=== PATIENT | female | born 1950 | race African-American/Black ===

== ENCOUNTER → 2017-06-02 | Day surgery (SDC) | payer MEDICARE, MEDICAID ==
[~2017-06-02] MED LIST: ATOR10TA60 PO; BUPR150T8 PO; CHOL10003 PO; ESCITALOPRAM OX10 MG PO; FURO20TA3 PO; IV RINGERS,LACTATED 1000ML 1,000 ML IV SCH; MULT1TAB52 PO; PROP40TA PO; PROPOFOL 20 ML IV ONE; THYROID MED
--- NOTE | 2017-06-02 09:13 | PDOC1 ---
HISTORY & PHYSICAL H&P Jocelyn Everett [id number] 1950 05/20/2017 03:30 PM 09/14 [facility], [facility] OUR PATIENTS COM[facility] FIRST [address] [place] [address] Ph. [phone] Patient: Jocelyn Everett Date of : 1950 Date: 05/20/2017 3:30 PM Visit Type: Consult This 66 year old female presents for Dysphagia. History of Present Illness: 1. Dysphagia The symptoms occur with solids and liquids which cause choking and gagging with food sticking in the lower chest. The symptoms are felt to be related to meals. The symptoms are not related to history of stroke. The patient has a history of neck irradiation. There is no history of Johnson's esophagus, reflux or stroke. The patient denies aggravating factors. The patient denies relieving factors. The patient is also experiencing choking and food sticking. The patient denies anorexia, bloating, chest pain, hoarseness or nausea. Additional information: Had breast ca 12 yrs ago and had chemo and radiation treatment . Has issue with swallowing ever since. Never has any evaluation. Had asymptomatic gallstone. INTAKE COMMENTS: Intake Comments: Nurse Note: the pt is here today with complaints of dysphagia, gallstones and vomiting after eating certain fruits. PROBLEM LIST: Problem Description Onset Date Chronic Notes Hypertension 05/21/2017 Y PAST MEDICAL/SURGICAL HISTORY (Detailed) Disease/disorder Onset Date Management Date Comments Lumpectomy 1998 Hysterectomy, total Cancer, breast Radiation therapy Cardiomyopathy Colonoscopy normal 2008 Common carotid aneurysm Diabetes type 2 Glaucoma Hyperlipidemia Lymphedema Osteomyelitis of mandible Osteoporosis Pseudophakia Thyroid disease Medications (Active): Started Medication Directions Instruction Stopped atorvastatin 10 mg tablet take 1 tablet by oral route every day bupropion HCl SR 150 mg tablet,12 hr sustained-release take 1 tablet by oral route every day furosemide 20 mg tablet take 1 tablet by oral route every day Lexapro 10 mg tablet take 1 tablet by oral route every day 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 ENMT Negative Hoarseness and sore throat. Eyes Negative Double vision. Respiratory Negative Dyspnea and wheezing. Cardio Negative Chest pain and irregular heartbeat/palpitations. GI Positive Choking, Food sticking, See HPI. GI Negative Anorexia, bloating, nausea and see HPI. Negative Dysuria and hematuria. Endocrine Negative Cold intolerance and heat intolerance. Psych Negative Anxiety. Integumentary Negative Hives and rash. MS Negative Joint pain. Kody/Lymph Negative Easy bleeding and easy bruising. Allergic/Immuno Negative Food allergies. VITAL SIGNS Time BP mm/Hg Pulse /min Resp /min Temp F Ht ft Ht in Ht cm Wt lb Wt kg BMI kg/ m2 BSA m2 O2 Sat% 3:26 PM 136/74 122 180.80 82.010 94 Time Measured by 3:26 PM Sarah Adams PHYSICAL EXAM: Exam Findings Details Constitutional Normal Well developed. Eyes Normal Conjunctiva - Right: Normal, Left: Normal. Sclera - Right: Normal, Left: Normal. Nasopharynx Normal Lips/teeth/gums - Normal. Neck Exam Normal Inspection - Normal. Thyroid gland - Normal. Respiratory Normal Inspection - Normal. Auscultation - Normal. Cardiovascular Normal Regular rate and rhythm. No murmurs, gallops, or rubs. Vascular Normal Pulses - Carotids: Normal, Femoral: Normal, Dorsalis pedis: Normal. Abdomen Normal Inspection - Normal. Anterior palpation - No guarding. No abdominal tenderness. No hepatic enlargement. No splenic enlargement. No hernia. No Ascites. Skin Normal Inspection - Normal. Extremity Normal No edema. Psychiatric Normal Oriented to time, place, person, and situation. Appropriate mood and effect. Assessment/Plan # Detail Type Description 1. Assessment Dysphagia, unspecified type (R13.10). Patient Plan schedule EGD at Plan Orders Further diagnostic evaluations ordered today include(s) EGD w/ dilation over guidewire to be performed today. She is to schedule a follow-up visit with Deborah De Paz MD upon completion of work-up Electronically signed by: Deborah De Paz MD 05/21/2017 11:35 AM Document generated by: Sarah Adams 05/21/2017 11:35 AM Chip Egan MD, Family Practice; Benjy Healy MD Internal Medicine; Louie Mcgovern MD, Internal Medicine; Mcihelle De Paz MD Internal Medicine; Deborah De Paz MD, Gastroenterology; Javier De León MD, Rheumatology, S. Ramin Chang, Physical Medicine/Rehab J. Axel BENSONN ------ 06/02/17 Patient seen and examined. No change in H&P. DEBORAH DE PAZ MD Jun 02, 2017 09:13
[2017-06-02 10:35] VITALS: BP 115/55
--- NOTE | 2017-06-03 16:07 | PATHOLOGY ---
PATHOLOGY REPORT * * * * * * * * FINAL DIAGNOSIS: Duodenal biopsy, polyp third part of duodenum: - Adenomatous polyp. COMMENT: There is no high grade dysplasia or evidence of malignancy. (JPM:db; 06/03/2017) REPORT ELECTRONICALLY SIGNED BY: Phani Maurice M.D. DATE/TIME: 06/03/2017 16:07 * * * * * * * * GROSS PATHOLOGY: Received in formalin labeled "Jocelyn Everett, biopsy 3rd part of duodenum," are three segments of scott soft tissue measuring from 0.3 up to 0.4 cm in maximum dimension. The specimen is submitted entirely in cassette A1. (JPM; 06/02/17) INITIAL CPT CODE(S): A; 39630 Professional services performed [place] [facility] [address] Technical services performed by [facility] at [address] [place] [address] Suzy Dan fax: [phone] SPECIMEN(S) RECEIVED: A.Polyp biopsy at 3rd part of duodenum CLINICAL HISTORY: Dysphagia PATIENT: JOCELYN EVERETT /AGE: 11 1950 (Age: 66) PATIENT #: [id number] ALT CASE #: SPECIMEN COLLECTION DATE: 06/02/2017 SPECIMEN RECEIVED DATE: 06/02/2017 [facility] - [address] [place] [address] - PHONE: [phone] * * * END OF REPORT * * *
== END | disposition home or self-care (01) ==
LOC: SURG 08:55
PROVIDERS: ATTEND Internal Medicine Gastroenterology
DX: D13.2 Benign neoplasm of duodenum (principal); K22.2 Esophageal obstruction; K44.9 Diaphragmatic hernia without obstruction or gangrene; E07.9 Disorder of thyroid, unspecified; E78.00 Pure hypercholesterolemia, unspecified; I10 Essential (primary) hypertension; E66.9 Obesity, unspecified; Z68.44 Body mass index [BMI] 60.0-69.9, adult; E11.9 Type 2 diabetes mellitus without complications; E03.9 Hypothyroidism, unspecified; F41.9 Anxiety disorder, unspecified; Z90.710 Acquired absence of both cervix and uterus; Z87.39 Personal history of other diseases of the musculoskeletal system and connective tissue; Z85.3 Personal history of malignant neoplasm of breast; Z86.39 Personal history of other endocrine, nutritional and metabolic disease
CPT/HCPCS: 43239; 43453; 88305; J2704

== ENCOUNTER → 2017-07-14 | Day surgery (SDC) | payer MEDICARE, MEDICAID ==
[~2017-07-14] MED LIST changes: +GLUCAGON,HUMAN RECOMBINANT 1 MG/ML VIAL. IV ONE; +GLUCAGON,HUMAN RECOMBINANT 1 MG/ML VIAL. ONE; +LIDOCAINE 2% PF Vial for OR 5 ML VIAL. ONE; -PROPOFOL 20 ML IV ONE; +PROPOFOL 40 ML IV ONE
--- NOTE | 2017-07-14 08:57 | PDOC1 ---
HISTORY & PHYSICAL H&P Jocelyn Everett [id number] 1950 06/16/2017 03:10 PM 09/14 [facility] [employer] [facility] OUR PATIENTS COME FIRST [address] [place], [place] [id number] Ph. [phone] Patient: Jocelyn Everett Date of : 1950 Date: 06/16/2017 3:10 PM Visit Type: Office Visit This 66 year old female presents for Follow Up of EGD. History of Present Illness: 1. Follow Up of EGD Patient recently had EGD and here for followup and discussion of the result. EGD/bx if done revealed following findings. EGD w/ dilation over guidewire ordered on is abnormal. Results: Imp: Medium-sized hiatal hernia. Benign appearing esophageal stenoses(dilated). Normal stomach. A single duodenal polyp( bx). BX: Adenomatous polyp. Result discussed with the patient. Patient dysphagia has been lot better. Discussed further treatment of adenomatous duodenal polyp. Will schedule for argon plasma coagulation. Since polyp is flat endoscopic removal would have increase chance of complication. Surgical resection would be too drastic given the location of the polyp. INTAKE COMMENTS: Intake Comments: Nurse Note: the pt is here today to discuss results of an EGD with BX that was done. PROBLEM LIST: Problem Description Onset Date Chronic Notes Hypertension 05/21/2017 Y PAST MEDICAL/SURGICAL HISTORY (Detailed) Disease/disorder Onset Date Management Date Comments Lumpectomy 1998 Hysterectomy, total Cancer, breast Radiation therapy Cardiomyopathy Colonoscopy normal 2008 Common carotid aneurysm Diabetes type 2 Glaucoma Hyperlipidemia Lymphedema Osteomyelitis of mandible Osteoporosis Pseudophakia Thyroid disease DIAGNOSTICS HISTORY: Test Ordered Interpretation Result completed EGD w/ dilation over guidewire 05/20/2017 abnormal Imp: Medium-sized hiatal hernia. Benign appearing esophageal stenoses(dilated). Normal stomach. A single duodenal polyp(bx). BX: Adenomatous polyp. 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 ENMT Negative Sore throat. Eyes Negative Double vision. Respiratory Negative Dyspnea and wheezing. Cardio Negative Chest pain and irregular heartbeat/palpitations. GI Positive See HPI. GI Negative See HPI. Negative Dysuria and hematuria. Endocrine Negative Cold intolerance and heat intolerance. Psych Negative Anxiety. Integumentary Negative Hives and rash. MS Negative Joint pain. Kody/Lymph Negative Easy bleeding and easy bruising. Allergic/Immuno Negative Food allergies. VITAL SIGNS Time BP mm/Hg Pulse /min Resp /min Temp F Ht ft Ht in Ht cm Wt lb Wt kg BMI kg/ m2 BSA m2 O2 Sat% 3:58 PM 83 98.2 5.0 7.00 170.18 183.60 83.280 28.76 94 Time Measured by 3:58 PM Sarah Adams PHYSICAL EXAM: Exam Findings Details Constitutional Normal Well developed. Eyes Normal Conjunctiva - Right: Normal, Left: Normal. Sclera - Right: Normal, Left: Normal. Nasopharynx Normal Lips/teeth/gums - Normal. Neck Exam Normal Inspection - Normal. Thyroid gland - Normal. Respiratory Normal Inspection - Normal. Auscultation - Normal. Cardiovascular Normal Regular rate and rhythm. No murmurs, gallops, or rubs. Vascular Normal Pulses - Carotids: Normal, Femoral: Normal, Dorsalis pedis: Normal. Abdomen Normal Inspection - Normal. Anterior palpation - No guarding. No abdominal tenderness. No hepatic enlargement. No splenic enlargement. No hernia. No Ascites. Skin Normal Inspection - Normal. Extremity Normal No edema. Psychiatric Normal Oriented to time, place, person, and situation. Appropriate mood and effect. Assessment/Plan # Detail Type Description 1. 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 Patient Plan schedule EGD at [facility] for argon plasma coagulation. Call [facility] and make sure they have equipment available. Plan Orders She is to schedule a follow-up visit with Deborah De Paz MD upon completion of work-up 2. Assessment Dysphagia, unspecified type (R13.10). Patient Plan Improved after dilation. Electronically signed by: Deborah De Paz MD 06/16/2017 04:16 PM Document generated by: Deborah De Paz 06/16/2017 04:16 PM Chip Egan MD, Family Practice; Benjy Healy MD Internal Medicine; Louie Mcgovern MD, Internal Medicine; Michelle De Paz MD Internal Medicine; Deborah De Paz MD, Gastroenterology; Javier De León MD, Rheumatology, S. Ramin Chang, Physical Medicine/Rehab J. Axel BENSONN ------ 07/14/17 Patient seen and examined. No change in H&P. DEBORAH DE PAZ MD Jul 14, 2017 08:57
[2017-07-14 10:02] VITALS: BP 116/68
== END | disposition home or self-care (01) ==
LOC: ENDOS 08:26
PROVIDERS: ATTEND Internal Medicine Gastroenterology
DX: D13.2 Benign neoplasm of duodenum (principal); K44.9 Diaphragmatic hernia without obstruction or gangrene; K31.7 Polyp of stomach and duodenum; E07.9 Disorder of thyroid, unspecified; E11.39 Type 2 diabetes mellitus with other diabetic ophthalmic complication; H40.9 Unspecified glaucoma; E03.9 Hypothyroidism, unspecified; E66.9 Obesity, unspecified; F32.9 Major depressive disorder, single episode, unspecified; Z87.39 Personal history of other diseases of the musculoskeletal system and connective tissue; Z90.710 Acquired absence of both cervix and uterus; Z87.442 Personal history of urinary calculi
CPT/HCPCS: 43235; J1610; J2704; J2001